=== PATIENT | male | born 1995 | race Caucasian/White ===

== ENCOUNTER 2017-07-15 19:10 | Emergency (ER) | payer OTHER ==
[~2017-07-15] VITALS: Ht 165.1 cm; Wt 70.3 kg
[~2017-07-15 19:10] MED LIST: LORATADINE PO; NAPROSYN500 MG PO; SEROQUEL25 MG PO; VICODIN 5/1 TAB 5/50 PO
== END 2017-07-15 19:52 | disposition home or self-care (01) ==
LOC: CED 19:10 → CFTX 19:10
DX: L91.0 Hypertrophic scar (principal); F41.9 Anxiety disorder, unspecified; Z88.0 Allergy status to penicillin
CPT/HCPCS: 99282